=== PATIENT | female | born 1965 | race Caucasian/White ===

== ENCOUNTER 2018-10-01 09:39 | Day surgery (SDC) | payer MEDICARE, MEDICAID ==
[~2018-10-01] VITALS: Ht 165.1 cm; Wt 45.0 kg
[~2018-10-01 09:39] MED LIST: ALB0.5UD IH; ALEN40TA2 PO; BACL10TA PO; CALC-1197 PO; DIAZ5TAB PO; DILT180C66 PO; EST1T PO; LINA145C PO; LYR75C PO; MELO-100 PO; METH-603 PO; METO1TAB12 PO; MOME13HF INH; MULT1CAP34 PO; PHE12.5T PO; SYN0.088T PO
[2018-10-01 09:50] VITALS: BP 138/64
[2018-10-01] MEDS ORDERED: MIDAZolam 5mg/5ml vial ONE (10:10)
[2018-10-01] MEDS ORDERED: fentaNYL/PF 50MCG/1 ML 2ML syringe ONE (10:10)
[2018-10-01] MEDS ORDERED: LEVO50TA8 PO (10:17)
[2018-10-01] MEDS ORDERED: BUDE10.2 INH (10:26)
[2018-10-01] MEDS ORDERED: CHOL10002 PO (10:26)
[2018-10-01] MEDS ORDERED: LISI10TA4 PO (10:26)
[2018-10-01] MEDS ORDERED: ALBU8.5H8 INH (10:27)
[2018-10-01] MEDS ORDERED: BUPR2TAB11 SL (10:27)
[2018-10-01] MEDS ORDERED: DENO60DI (10:28)
[2018-10-01 10:38] VITALS: BP 130/74
[2018-10-01 10:48] VITALS: BP 129/72
[2018-10-01 10:58] VITALS: BP 134/72
[2018-10-01 11:08] VITALS: BP 131/70
== END 2018-10-01 11:35 | disposition home or self-care (01) ==
LOC: GI LAB 09:39
PROVIDERS: ATTEND Internal Medicine Gastroenterology
DX: Z12.11 Encounter for screening for malignant neoplasm of colon (principal); D12.5 Benign neoplasm of sigmoid colon; K57.30 Diverticulosis of large intestine without perforation or abscess without bleeding
CPT/HCPCS: 45380; 99153; G0500; J2250; J3010; J7030; 88305; 99152; A4620

== ENCOUNTER 2021-05-25 08:18 | Emergency (ER) | payer MEDICARE, MEDICAID ==
[~2021-05-25] VITALS: Ht 162.6 cm; Wt 47.0 kg
[~2021-05-25 08:18] MED LIST changes: +ALBU8.5H8 INH; -ALEN40TA2 PO; +BUDE10.2 INH; +BUPR2TAB11 SL; -CALC-1197 PO; +CALC-1215 PO; +CHOL10002 PO; +DENO60DI; -DIAZ5TAB PO; +LEVO50TA8 PO; +LISI10TA27 PO; -MELO-100 PO; -METH-603 PO; -MOME13HF INH; -PHE12.5T PO; -SYN0.088T PO
[2021-05-25] MEDS ORDERED: acetaminophen 325mg tablet PO ONE (08:35)
--- NOTE | 2021-05-25 08:44 | NUR ---
vascular us underway
[2021-05-25] MEDS ORDERED: CEPH250T PO (09:15)
[2021-05-25 09:25] VITALS: BP 170/93
== END 2021-05-25 09:27 | disposition home or self-care (01) ==
LOC: ER 08:18
DX: L03.116 Cellulitis of left lower limb (principal); I11.0 Hypertensive heart disease with heart failure; I50.9 Heart failure, unspecified; J44.9 Chronic obstructive pulmonary disease, unspecified; G89.29 Other chronic pain; Z90.710 Acquired absence of both cervix and uterus; Z98.51 Tubal ligation status; Z98.890 Other specified postprocedural states; Z79.899 Other long term (current) drug therapy; Z88.5 Allergy status to narcotic agent
CPT/HCPCS: 93971; 99284

== ENCOUNTER 2021-08-01 08:31 | Emergency (ER) | payer MEDICARE, MEDICAID ==
[~2021-08-01] VITALS: Ht 162.6 cm; Wt 45.5 kg
[~2021-08-01 08:31] MED LIST changes: +ALBU8.5H17 INH; -ALBU8.5H8 INH
[2021-08-01 08:37] VITALS: BP 129/79
[2021-08-01 09:12] LABS: BASOPHILS % (AUTO) 0.1 % (0-1); EOSINOPHILS % (AUTO) 0 % (0-6); HEMATOCRIT 36.8 % (35.0-45.0); HEMOGLOBIN 12.8 g/dl (12.0-16.0); LYMPHOCYTES # (AUTO) 1.1 X10'3 (1.1-4.8); LYMPHOCYTES % (AUTO) 10.9 % (21-51); MEAN CORPUSCULAR HEMOGLOBIN 30.5 PG (27.0-31.0); MEAN CORPUSCULAR HGB CONC 34.8 g/dL (33.0-36.5); MEAN CORPUSCULAR VOLUME 87.5 FL (78-98); MEAN PLATELET VOLUME 9.8 FL (7.4-10.4); MONOCYTES # (AUTO) 0.6 X10'3 (0-0.9); MONOCYTES % (AUTO) 5.5 % (2-12); NEUTROPHILS # (AUTO) 8.5 X10'3 (1.8-7.7); NEUTROPHILS % (AUTO) 83.5 % (42-75); PLATELET COUNT 154 X10'3 (140-440); RED CELL DISTRIBUTION WIDTH 13.6 % (11.5-14.5); WHITE BLOOD COUNT 10.3 X10'3 (4.5-11.0)
[2021-08-01 09:14] LABS: ALBUMIN 4.2 G/DL (3.4-5.0); ANION GAP 16 (8-16); BLOOD UREA NITROGEN 21 MG/DL (7-18); BUN/CREATININE RATIO 16.4 (6.6-38.0); CALCIUM 8.9 MG/DL (8.5-10.1); CHLORIDE 101 MMOL/L (99-107); CREATININE 1.28 MG/DL (0.40-0.90); GLUCOSE 123 MG/DL (70-104); POTASSIUM 3.2 MMOL/L (3.5-5.1); SODIUM 145 MMOL/L (135-145); TOTAL CARBON DIOXIDE 28.5 MMOL/L (24-32); eGFR 43 ML/MIN
[2021-08-01 09:17] LABS: D-DIMER 0.49 MG/L FEU (0-0.50)
[2021-08-01] MEDS ORDERED: FLUT16SP2 BOTHNARES (09:27)
[2021-08-01] MEDS ORDERED: BENZ-16 PO (09:27)
== END 2021-08-01 09:39 | disposition home or self-care (01) ==
LOC: ER 08:33
DX: R04.2 Hemoptysis (principal); Z20.822 Contact with and (suspected) exposure to COVID-19; J02.9 Acute pharyngitis, unspecified; I11.0 Hypertensive heart disease with heart failure; I50.9 Heart failure, unspecified; J44.9 Chronic obstructive pulmonary disease, unspecified; G89.29 Other chronic pain; Z90.710 Acquired absence of both cervix and uterus; Z98.51 Tubal ligation status; Z98.890 Other specified postprocedural states; Z88.5 Allergy status to narcotic agent; Z79.899 Other long term (current) drug therapy
CPT/HCPCS: 36415; 71045; 80048; 85025; 85379; 87635; 99284; C9803

== ENCOUNTER 2024-10-29 10:07 | Emergency (ER) | payer MEDICARE, MEDICAID ==
[~2024-10-29] VITALS: Ht 162.6 cm; Wt 46.0 kg
[~2024-10-29 10:07] MED LIST changes: +FLUT16SP2 BOTHNARES
[2024-10-29 10:44] LABS: BILIRUBIN,URINE NEGATIVE (Neg); CLARITY,URINE CLOUDY (Clear); COLOR,URINE YELLOW (Yellow); GLUCOSE, URINE NEGATIVE (Neg); KETONES,URINE NEGATIVE (Neg); LEUKOCYTE ESTERASE ,URINE MODERATE (Neg); NITRITES, URINE POSITIVE (Neg); OCCULT BLOOD,URINE LARGE (Neg); PROTEIN,URINE 100 mg/dl (Neg); UROBILINOGEN,URINE 0.2 E.U/dL (0.2-1.0)
[2024-10-29 10:53] LABS: UA COLLECTION TYPE CLN CATCH MIDSTREAM
[2024-10-29 10:56] LABS: BACTERIA,URINE 4+ /HPF (Neg); SQUAMOUS EPITHELIAL CELL,UR FEW /LPF (FEW); WBC,URINE TNTC /HPF (0-4)
[2024-10-29 10:57] LABS: RBC,URINE 20-50 /HPF (0-2); WBC CLUMPS,URINE FEW /HPF (NEGATIVE)
[2024-10-29] MEDS ORDERED: CEPH-585 PO (12:06)
[2024-10-29 12:24] VITALS: BP 142/83; PULSE 85; RESP 14; TEMP 97.9; O2SAT 95
[2024-10-29] MEDS ORDERED: PHEN-716 PO (15:41)
== END 2024-10-29 12:12 | disposition home or self-care (01) ==
LOC: ER 10:08
DX: N39.0 Urinary tract infection, site not specified (principal); I11.0 Hypertensive heart disease with heart failure; I50.9 Heart failure, unspecified; J44.9 Chronic obstructive pulmonary disease, unspecified; Z90.710 Acquired absence of both cervix and uterus; Z98.51 Tubal ligation status; Z98.890 Other specified postprocedural states; Z88.5 Allergy status to narcotic agent; Z79.52 Long term (current) use of systemic steroids; Z79.899 Other long term (current) drug therapy
CPT/HCPCS: 81001; 87077; 87088; 87186; 99283

== ENCOUNTER 2024-10-29 13:59 | Emergency (ER) | payer MEDICARE, MEDICAID ==
[~2024-10-29] VITALS: Ht 162.6 cm; Wt 45.0 kg
[~2024-10-29 13:59] MED LIST changes: +CEPH-585 PO
[2024-10-29 14:11] VITALS: BP 102/55
[2024-10-29] MEDS ORDERED: PHEN-716 PO (15:41)
[2024-10-29 15:58] VITALS: PULSE 75; RESP 16; TEMP 98.5; O2SAT 99
== END 2024-10-29 15:44 | disposition home or self-care (01) ==
LOC: ER 14:00
DX: N39.0 Urinary tract infection, site not specified (principal); I11.0 Hypertensive heart disease with heart failure; I50.9 Heart failure, unspecified; J44.9 Chronic obstructive pulmonary disease, unspecified; Z90.710 Acquired absence of both cervix and uterus; Z98.51 Tubal ligation status; Z88.5 Allergy status to narcotic agent; Z79.52 Long term (current) use of systemic steroids; Z79.899 Other long term (current) drug therapy
CPT/HCPCS: 99284